=== PATIENT | male | born 1935 | race Caucasian/White ===

== ENCOUNTER 2020-06-29 20:37 | Outpatient (CLI) | payer MEDICARE, OTHER | END 2020-06-29 23:59 | disposition short-term general hospital (02) | LOC: EMS 20:37 | PROVIDERS: ATTEND Surgery | DX: R07.9 Chest pain, unspecified (principal) | CPT/HCPCS: A0425; A0427 ==

== ENCOUNTER 2023-08-29 09:17 | Outpatient (CLI) | payer MEDICARE, OTHER | END 2023-08-29 09:18 | disposition short-term general hospital (02) | LOC: EMS 09:17 | DX: I48.91 Unspecified atrial fibrillation (principal); R07.9 Chest pain, unspecified; R06.02 Shortness of breath | CPT/HCPCS: A0425; A0427 ==